=== PATIENT | male | born 2000 | race Caucasian/White ===

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

== ENCOUNTER 2018-06-06 21:17 | Emergency (ER) | payer SELFPAY ==
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
[2018-06-06] MEDS ORDERED: oxyCODONE/Acetamin 5/325 MG* TAB PO ONE (22:14)
[2018-06-06 22:36] LABS: Hematocrit 41 % (42-52); Hemoglobin 14.1 g/dl (14.0-18.0); Mean Corpuscular HGB Conc 35 g/dl (31-36); Mean Corpuscular Hemoglobin 32 pg (27-31); Mean Corpuscular Volume 92 fL (80-94); Mean Platelet Volume 9.2 um3 (7.4-10.4); Platelet Count 155 10^3/ul (150-450); Red Blood Count 4.44 10^6/ul (4.00-5.40); Red Cell Distribution Width 14 % (10.5-15); White Blood Count 9.9 10^3/ul (3.5-10.8)
[2018-06-06 22:47] LABS: EGFR Non-African American 83.6 (>60)
[2018-06-06] MEDS ORDERED: Iohexol 300* (CONTRAST) 10 ML SDV IV ONE (23:01)
[2018-06-07] MEDS ORDERED: oxyCODONE/Acetamin 5/325 MG* TAB PO ONE (02:03)
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
[2018-06-07 02:23] VITALS: BP 119/73
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
== END 2018-06-07 02:22 | disposition home or self-care (01) ==
LOC: ED 21:17
DX: S29.9XXA Unspecified injury of thorax, initial encounter (principal); Y04.2XXA Assault by strike against or bumped into by another person, initial encounter; Y92.9 Unspecified place or not applicable; F17.210 Nicotine dependence, cigarettes, uncomplicated; R00.1 Bradycardia, unspecified; R91.8 Other nonspecific abnormal finding of lung field
CPT/HCPCS: 36415; 71046; 71260; 80053; 80320; 84484; 85027; 93005; 99282; A9270-GY; G0480; Q9967